=== PATIENT | female | born 1950 | race Caucasian/White ===

== ENCOUNTER 2017-12-02 11:09 | Emergency (ER) | payer OTHER, MEDICAID ==
[~2017-12-02] VITALS: Ht 160 cm; Wt 127.0 kg
[2017-12-02 11:21] VITALS: Ht 160 cm; Wt 127.0 kg
[2017-12-02 13:18] VITALS: BP 140/61
== END 2017-12-02 11:40 | disposition home or self-care (01) ==
LOC: ED 11:09
DX: S83.8X1A Sprain of other specified parts of right knee, initial encounter (principal); I10 Essential (primary) hypertension; E11.9 Type 2 diabetes mellitus without complications; W18.39XA Other fall on same level, initial encounter; Y93.89 Activity, other specified; Y92.090 Kitchen in other non-institutional residence as the place of occurrence of the external cause; Y99.8 Other external cause status
CPT/HCPCS: J1885

== ENCOUNTER 2018-01-15 08:12 | Emergency (ER) | payer OTHER, MEDICAID ==
[~2018-01-15] VITALS: Ht 160 cm; Wt 131.5 kg
[2018-01-15 09:53] VITALS: BP 151/78
== END 2018-01-15 09:53 | disposition home or self-care (01) ==
LOC: ED 08:12
DX: S80.12XA Contusion of left lower leg, initial encounter (principal); W01.0XXA Fall on same level from slipping, tripping and stumbling without subsequent striking against object, initial encounter; Y93.89 Activity, other specified; Y92.89 Other specified places as the place of occurrence of the external cause; Y99.8 Other external cause status; I10 Essential (primary) hypertension; E11.9 Type 2 diabetes mellitus without complications
CPT/HCPCS: Q0092

== ENCOUNTER 2018-11-11 06:32 | Emergency (ER) | payer OTHER, MEDICAID ==
[~2018-11-11] VITALS: Ht 160 cm; Wt 132.4 kg
[2018-11-11 06:37] VITALS: Ht 160 cm; Wt 132.4 kg
[2018-11-11 07:44] VITALS: BP 124/72
== END 2018-11-11 07:44 | disposition home or self-care (01) ==
LOC: ED 06:32
DX: S83.92XA Sprain of unspecified site of left knee, initial encounter (principal); M17.12 Unilateral primary osteoarthritis, left knee; I10 Essential (primary) hypertension; E11.9 Type 2 diabetes mellitus without complications; Z90.49 Acquired absence of other specified parts of digestive tract; X50.1XXA Overexertion from prolonged static or awkward postures, initial encounter; Y93.01 Activity, walking, marching and hiking; Y92.091 Bathroom in other non-institutional residence as the place of occurrence of the external cause; Y99.8 Other external cause status

== ENCOUNTER 2019-03-22 07:09 | Emergency (ER) | payer OTHER, MEDICAID ==
[~2019-03-22] VITALS: Ht 160 cm; Wt 132.6 kg
[2019-03-22 07:12] VITALS: Ht 160 cm; Wt 132.6 kg
[2019-03-22 08:28] VITALS: BP 149/56
== END 2019-03-22 08:28 | disposition home or self-care (01) ==
LOC: ED 07:09
DX: S63.502A Unspecified sprain of left wrist, initial encounter (principal); I10 Essential (primary) hypertension; E11.9 Type 2 diabetes mellitus without complications; X58.XXXA Exposure to other specified factors, initial encounter; Y93.89 Activity, other specified; Y92.89 Other specified places as the place of occurrence of the external cause; Y99.8 Other external cause status
CPT/HCPCS: J1885; J2270; Q0092; Q0162

== ENCOUNTER 2019-06-25 13:38 | Inpatient (IN) | payer OTHER, MEDICAID ==
[~2019-06-25] VITALS: Ht 160 cm; Wt 133.8 kg
[2019-06-25 13:59] VITALS: Ht 160 cm; Wt 133.8 kg
--- NOTE | 2019-06-25 14:01 | NUR ---
EKG IN PROGRESS
--- NOTE | 2019-06-25 16:45 | NUR ---
PATIENT AAOX4 PRESENTS TO THE ED WITH ONGOING PRODUCTIVE COUGH WITH WHITE PHELGM X 2 DAYS. PT STS SHE FEELS SOB. BREATHING EVEN WITH BILATERAL WHEEZES AND CONGESTION TO UPPER AND LOWER LOBES. ABD SOFT, NON DISTENDED, NON TENDER. SKIN WARM, DRY AND INTACT. NO OTHER SS OF DISTRESS NOTED. PT PLACED ON MONITORS FOR FURTHER OBSERVATION. WILL CONTINUE TO MONITOR.
--- NOTE | 2019-06-25 16:56 | NUR ---
MEDICATED PER MD ORDERS, SEE EMR
--- NOTE | 2019-06-25 16:57 | NUR ---
RESPIRATORY BEDSIDE PROVIDING BREATHING TX.
--- NOTE | 2019-06-25 17:49 | NUR ---
CALLED LAB RE: RESULTS FOR INFLUENZA SUBMITTED. LAB LOST SPECIMAN
--- NOTE | 2019-06-25 17:55 | NUR ---
RESENT NASAL SWAB FOR INFL A/B TEST. WILL CONTINUE TO F/U.
[2019-06-25] MEDS ORDERED: METFORMIN850 M1 PO (18:30)
[2019-06-25] MEDS ORDERED: GLIPIZIDE2.5 M1 PO (18:31)
[2019-06-25] MEDS ORDERED: ACT30 PO (18:31)
[2019-06-25] MEDS ORDERED: LISINOPRIL40 MG PO (18:32)
[2019-06-25 18:52] LABS: BASOPHIL % 0.7 % (0-2); PLATELET COUNT 179 x10^3mcL (130-400); RED CELL DISTRIBUTION WIDTH 13.9 % (11.5-14.5)
[2019-06-25 19:02] LABS: CALCIUM 8.9 mg/dL (8.5-10.1); CARBON DIOXIDE 24.2 mmol/L (21-32); CHLORIDE SERUM 102 mmol/L (98-107); CREATININE SERUM 1.2 mg/dL (0.6-1.0); GFR1 47 mL/min; GLUCOSE SERUM 96 mg/dL (74-106); POTASSIUM SERUM 3.9 mmol/L (3.5-5.1); SODIUM SERUM 136 mmol/L (136-145)
[2019-06-25 19:06] LABS: ALKALINE PHOSPHATASE 71 U/L (46-116); ALT/SGPT 29 U/L (14-59); AST/SGOT 24 U/L (15-37); BILIRUBIN TOTAL 0.3 mg/dL (0.20-1.00); TOTAL PROTEIN, SERUM 7.6 g/dL (6.4-8.2)
[2019-06-25 19:07] LABS: ALBUMIN 3.3 g/dL (3.4-5.0)
--- NOTE | 2019-06-25 19:21 | NUR ---
REPORT PROVIDED TO OLEKSANDR SANCHEZ FOR CONTINUED CARE OF YOUNG.
--- NOTE | 2019-06-25 19:34 | NUR ---
REPORT RECEIVED FROM HARRY LEGGETT
--- NOTE | 2019-06-25 19:59 | NUR ---
CALLED KAV[facility] MORALES PER PT REQUEST,
--- NOTE | 2019-06-25 20:25 | NUR ---
PT. AMBULATED TO THE RESTROOM WITH STEADY GAIT
--- NOTE | 2019-06-25 20:32 | NUR ---
PT. SITTING UP IN HIGH FOWLERS POSITION, AAOX4, NO ACUTE RESPIRATORY DISTRESS NOTED, ADMITTED, PENDING BED ASSIGNMENT, REPOSITIONED PT FOR COMFORT, CALL LIGHT WITHING REACH, WILL MONITOR.
--- NOTE | 2019-06-25 20:32 | NUR ---
DR. FARRAR AT BEDSIDE WITH UPDATED POC
--- NOTE | 2019-06-25 20:32 | NUR ---
SON AT BEDSIDE
[2019-06-25 20:49] LABS: CHOLESTEROL/HDL RATIO 3.8; MAGNESIUM 1.7 mg/dL (1.8-2.4); PHOSPHOROUS 1.8 mg/dL (2.5-4.9)
[2019-06-25 20:57] LABS: microscopic required? YES; urine erythrocyte NEGATIVE (NEGATIVE)
[2019-06-25 20:59] LABS: T3 TOTAL 0.89 ng/mL
[2019-06-25 21:09] LABS: FREE T4 1.45 ng/dL (0.76-1.46)
[2019-06-25 21:10] LABS: T4(THYROXINE) 15.3 ug/dL (4.7-13.3)
--- NOTE | 2019-06-25 21:57 | NUR ---
RT AT BEDSIDE WITH IS
--- NOTE | 2019-06-25 22:42 | NUR ---
CONTACTED PHARMACY FOR MUCINEX AND POTASSIUM PACKET PER ORDER, NONE IN [facility], PHARMACY WILL HAVE READY TO PERSONAL DEVELOPMENT MENTOR
[2019-06-25 23:20] VITALS: BP 148/55
--- NOTE | 2019-06-25 23:20 | NUR ---
MEDICATED PT PER MD ORDER, PT. TOLERATED WELL, SEE EAMR
--- NOTE | 2019-06-25 23:20 | NUR ---
PT. LAYING IN BED, AAOX4, NO ACUTE RESPIRATORY DISTRESS NOTED, REPOSITIONED PT FOR COMFORT, CALL LIGHT WITHIN REACH, VSS, WILL MONITOR, TELE HOLD.
--- NOTE | 2019-06-26 02:24 | NUR ---
PT. LAYING IN BED, SLEEPING, NO ACUTE RESPIRATORY DISTRESS NOTED, AROUSABLE TO TOUCH, DENIES PAIN, PROVIDED WARM BLANKETS, UPDATED PT WITH POC, PENDING BED ASSIGNMENT, ON MONITOR, WILL MONITOR.
--- NOTE | 2019-06-26 04:46 | NUR ---
PT. AMBULATED TO THE RESTROOM WITH STEADY GAIT
[2019-06-26 05:00] LABS: BASOPHIL % 0.4 % (0-2); PLATELET COUNT 179 x10^3mcL (130-400); RED CELL DISTRIBUTION WIDTH 14.5 % (11.5-14.5)
[2019-06-26 05:09] LABS: IRON 37 ug/dL (50-170); TOTAL IRON BINDING CAPACITY 342 ug/dL (250-450)
[2019-06-26 05:14] LABS: CALCIUM 8.7 mg/dL (8.5-10.1); CARBON DIOXIDE 24.1 mmol/L (21-32); CREATININE SERUM 1.3 mg/dL (0.6-1.0); MAGNESIUM 1.6 mg/dL (1.8-2.4); PHOSPHOROUS 3.5 mg/dL (2.5-4.9); POTASSIUM SERUM 4.7 mmol/L (3.5-5.1)
--- NOTE | 2019-06-26 06:30 | NUR ---
PT. LAYING IN BED, AAOX4, NO ACUTE RESPIRATORY DISTRESS NOTED, PROVIDED NEW GOWN FOR PT PER HER REQUESTD, REPOSITIONED PT FOR COMFORT, DENIES PAIN AT THIS TIME, CALL LIGHT WITHIN REACH, SAFETY PRECAUTIONS IN PLACE, IN VIEW OF STAFF, PENDING BED ASSIGNMENT.
--- NOTE | 2019-06-26 06:46 | NUR ---
MEDICATED PER MD ORDERS, PT.TOLERATED WELL, SEE EMAR
--- NOTE | 2019-06-26 07:27 | NUR ---
CALLED TO GIVEN REPORT STATED TO CALL BACK IN 5 MINS.
--- NOTE | 2019-06-26 07:33 | NUR ---
REPORT GIVEN TO JAVID LEGGETT
--- NOTE | 2019-06-26 07:40 | NUR ---
LINE CAMERA OPERATOROLEKSANDR HUA MADE AWARE, PT. C/O HEADACHE, 11/03, PT. REQUESTING TYLENOL.
[2019-06-26 08:30] VITALS: BP 187/64
--- NOTE | 2019-06-26 08:40 | NUR ---
PATIENT WAS C/O HEADACHE, TYLENOL WAS GIVEN BY OLEKSANDR MATT. WILL CONTINUE TO MONITOR FOR CHANGES.
[2019-06-26 09:04] VITALS: BP 159/77
--- NOTE | 2019-06-26 09:23 | NUR ---
RECEIVED PATIENT FROM ED. PATIENT ARRIVED VIA GUERNEY WITH NURSE. PATIENT OBSERVED AMBULATION TO BED. PATIENT SON LARA AT BEDSIDE. PATIENT STATES HAS MILD COMPLAINTS OF MCGEE BUT DENIES CHEST PAIN OR SOB. PRN TYLENOL PO ADMINISTERED. PATIENT HAS NONPRODUCTIVE COUGH WO SPUTUM, IS AT BEDSIDE AND PATIENT AWARE OF USAGE, EDUCATIONAL MATERIALS PROVIDED IN APPROPRIATE LANGUAGE. LUNG SOUNDS DIMINISHED TO BILATERAL BASES. PULSES PRESENT, TRACE EDEMA TO BLE. EXPLAINED TO PATIENT NEED FOR SPUTUM CULTURE, AND OB STOOL CULTURE, PATIENT AND SON VERBALIZE UNDERSTAND AND AGREE. DR MARTINEZ CONSULTED AND PATIENT MADE AWARE. INSTRUCTED PATIENT ON USE OF BED CONTROLS AND CALL LIGHT, AND TO CALL FOR ASSISTANCE IN AND OUT OF BED WELL TO USE BATHROOM.
--- NOTE | 2019-06-26 10:55 | NUR ---
MAG RIDER GIVEN AT THIS TIME. ALL NEEDS MET, WILL CONTINUE TO MONITOR.
--- NOTE | 2019-06-26 13:30 | NUR ---
PATIENT WAS RESTING IN BED COMFORTABLY, MEDICATIONS GIVEN AT THIS TIME. NO ACUTE DISTRESS NOTED, PATIENT DENIES PAIN. ALL NEEDS MET AT THIS TIME. CALL LIGHT WITHIN REACH, BED IN LOW POSITION. WILL CONTINUE TO MONITOR.
[2019-06-26 17:48] VITALS: BP 162/66
--- NOTE | 2019-06-26 18:00 | NUR ---
PATIENT RESTING IN BED, NO ACUTE DISTRES NOTED. PATIENT DENIES CHEST PAIN, DIZZINESS. PATIENT DENIES SOB, ON ROOM AIR. ALL NEEDS MET AT THIS TIME, WILL CONTINUE TO MONITOR FOR CHANGES. WILL ENDORSE REPORT TO OLEKSANDR BURGOS.
[2019-06-26 20:00] VITALS: BP 140/56
--- NOTE | 2019-06-26 20:11 | NUR ---
RECEIVED PT FROM AM, PT IS A/O X4, VERBAL RESPONSIVE. LUNG SOUND WHEEZING/CONGESTED, CONSTANTLY COUGH, COLLECT THE RESPIRATORY SPUTUM. PT IS ON TELE 12, NSR, DENY ANY CHEST PAIN OR DISCOMFORT, BOWEL SOUND PRESENT ALL 4 QUADRANTS, NO DISTENTION, NO TENDER. PEDAL PULSE PRESENT BOTH FEET, TRACE EDEMA, ALL ADLS ASSIST, ALL NEED MET, CALL LIGHT IN REACH, WILL CONTINUE TO MONITOR.
--- NOTE | 2019-06-27 01:17 | NUR ---
ENDROSE THE PT CARE TO LUNA LEGGETT. PT IS CURRENTLY SLEEPING, NO S/S OF RESPIRATORY DISTRESS, NO S/S OF PAIN OR DISCOMFORT, IV AT LEFT AC, NO LEAKING, NO INFILTRATION. ALL ADLS ASSIST, ALL NEED MET, CALL LIGHT IN REACH, WILL CONTINUE TO MONITOR.
--- NOTE | 2019-06-27 01:20 | NUR ---
REPORT RECEIVED FROM KELLEE(NT RN) AND I ASSUMED CARE. PT ON BED ASLEEP AND NOTED WITH NON LABORED BREATHING, NO RESP DISTRESS. IV SITE INTACT AND NO INFILTRATION NOTED TO SITE. WILL CONT TO MONITOR.
--- NOTE | 2019-06-27 03:14 | NUR ---
WENT AND CHECK PT, NOTED ASLEEP AND BREATHING UNLABORED AND NO APPARENT DISTRESS. NO CURRENT COMPLAIN AT THIS TIME. WILL CONT TO MONITOR.
--- NOTE | 2019-06-27 04:58 | NUR ---
PT AWAKE/ALERT/OX4. PT STATED FEELING A LOT BETTER AND DENIES SHORTNESS OF BREATH. DENIES CHETS PAIN. DENIES HEADACHE, DIZZINESS. IV SITE TO LFA INTACT AND FLUSHED WITH NS AND NO INFILTRATION NOTED TO SITE. KEPT COMFORTABLE ON BED. CALL LIGHT W/IN REACH. SAFETY MEASURES IN PLACE.
[2019-06-27 05:29] VITALS: BP 165/75
--- NOTE | 2019-06-27 06:05 | NUR ---
PT AWAKE/ALERT/OX4. DENIES RESP.DISRESS. NO SOB NOTED. DENIES CHEST PAIN. DENIES DIZZINESS, DENIES N/V. DENIES HEADACHE. PT STATES FEELING MUCH BETTER. IV SITE INTACT AND NO INFILTRATION NOTED TO SITE. KEPT COMFORTABLE ON BED. CALL LIGHT W/IN REACH. SAFETY MEASURES IN PLACED. WILL ENDORSE TO AM SHIFT.
[2019-06-27 06:51] LABS: CALCIUM 8.8 mg/dL (8.5-10.1); CARBON DIOXIDE 24.8 mmol/L (21-32); CREATININE SERUM 1.1 mg/dL (0.6-1.0); MAGNESIUM 2.2 mg/dL (1.8-2.4); PHOSPHOROUS 3.3 mg/dL (2.5-4.9)
--- NOTE | 2019-06-27 07:10 | NUR ---
RECEIVED PT FROM BOND WRITER RN. Mir/MOHIT. TELE#12. DENIES CHEST PAIN/PRESSURE. RESPIRATIONS EQUAL AND UNLABORED ON RA. DENIES SOB AT THIS TIME. PT STATES "I FEEL MUCH BETTER THAN WHEN I CAME IN." PT DENIES ANY PAIN AT THIS TIME TIME. FAMILY AT BEDSIDE. IV TO LAC SALINE LOCKED, FLUSHED WELL, NO REDNESS OR SWELLING NOTED. WILL CONTINUE TO MONITOR. CALL LIGHT IN REACH. BED IN LOWEST POSITION.
[2019-06-27 08:01] VITALS: BP 170/69
[2019-06-27 08:01] LABS: BASOPHIL % 0.2 % (0-2); PLATELET COUNT 186 x10^3mcL (130-400); RED CELL DISTRIBUTION WIDTH 14.2 % (11.5-14.5)
--- NOTE | 2019-06-27 08:53 | NUR ---
PT SITTING UP IN BED. NO ACUTE RESP DISTRESS NOTED ON RA. CUCA PRINTING PRESS OPERATOR AT BEDSIDE EXPLAINING TO PT PLAN FOR FOLLOW UP CXR AND WILL ADD MUCOMYST TO BREATHING TREATMENTS. ALL QUESTIONS AND CONCERNS ADDRESSED. GIVEN PO MEDS. TOLERATED WELL. FAMILY AT BEDSIDE. WILL CONTINUE TO MONITOR. CALL LIGHT IN REACH. BED IN LOWEST POSITION.
--- NOTE | 2019-06-27 12:00 | NUR ---
PT SITTING UP IN BED. NO ACUTE RESP DISTRESS NOTED ON RA. PT C/O MCGEE. MEDICATED PER EMAR. PT C/O FEELING CONSTIPATED. MEDICATED PER EMAR. PT MADE AWARE OF NEED TO OBTAIN STOOL OB, HAT PLACED IN BATHROOM. BLOOD SUGAR CHECKED WAS 189. GIVEN 3 UNITS OF REGULAR INSULIN PER SLIDING SCALE. WILL CONTINUE TO MONITOR. CALL LIGHT IN REACH. BED IN LOWEST POSITION.
[2019-06-27 12:27] VITALS: BP 156/64
--- NOTE | 2019-06-27 12:37 | NUR ---
RECEIVED [facility] OF PTT 51.9. PER HEPARIN DRIP PROTOCOL NO CHANGE NEEDED. HEPARIN INFUSING AT 700 UNITS/HR. ORDERED STAT PTT AT 1630. WILL CONTINUE TO MONITOR.
[2019-06-27 16:09] VITALS: BP 141/53
--- NOTE | 2019-06-27 17:08 | NUR ---
PT IN BED RESTING. NO ACUTE RESP DISTRESS NOTED ON RA. PT DENIES ANY PAIN AT THIS TIME. GIVEN PO MEDS. TOLERATED WELL. BLOOD SUGAR CHECKED WAS 228. GIVEN 6 UNITS OF REGULAR INSULIN PER SLIDING SCALE. PT STATES STILL UNABLE TO HAVE BM. WILL CONTINUE TO MONITOR. CALL LIGHT IN REACH. BED IN LOWEST POSITION.
--- NOTE | 2019-06-27 17:56 | NUR ---
RECEIVED CALL FROM MICRO NEED NEW SPECIMEN FOR SPUTUM CULTURE. PT STATES UNABLE TO COUGH ANY SPUTUM UP. PT STATES "I HAVE A COUGH ITS DRY. NOTHING COMES UP." CUCA DEAN OF INSTRUCTION MADE AWARE, PER CUCA DEAN OF INSTRUCTION NO NEED TO COLLECT SPUTUM CULTURE.
--- NOTE | 2019-06-27 18:43 | NUR ---
PT SITTING UP IN BED. NO ACUTE RESP DISTRESS NOTED ON RA. PT DENIES ANY SOB AT THIS TIME. PT DENIES ANY PAIN AT THIS TIME. JIMENEZ CARE PROVIDED. EMPTIED 100 ML OF CLOUDY YELLOW URINE FROM JIMENEZ. PT DENIES ANY N/V. IV TO LFA INFUSING HEPARIN AT 700 UNITS/HR PER PROTOCOL. NO REDNESS OR SWELLING NOTED. WILL ENDORSE CARE TO CARGO CHECKER RN. CALL LIGHT IN REACH. BED IN LOWEST POSITION.
--- NOTE | 2019-06-27 18:47 | NUR ---
PT IN BED RESTING. NO ACUTE RESP DISTRESS NOTED ON RA. PT DENIES ANY SOB AT THIS TIME. PT STATES BREATHING HAS IMPROVED SINCE YESTERDAY. PT DENIES ANY PAIN AT THIS TIME. IV TO LFA SALINE LOCKED. NO REDNESS OR SWELLING NOTED. WILL ENDORSE CARE TO ENGINEERING TEST SPECIALIST RN. CALL LIGHT IN REACH. BED IN LOWEST POSITION.
--- NOTE | 2019-06-27 19:32 | NUR ---
RECEIVED PT FROM DAY SHIFT RN. PT AAOX4 DENIES MCGEE/DIZZINESS. BREATHING EVEN AND UNLABORED ON RA WITH NO SOB NOTED. REPORTS CONT HAVING A COUGH. MED SURG PT DENIES CHEST PAIN/PRESSURE. IV RFA PATENT. BLE EDEMA, PALPABLE PULSES. ABD SOFT/DIST ACTIVE BOWEL SOUNDS. DENIES ABD PAIN/N/V. NO ACUTE DISTRESS NOTED.CALL BUTTON WITHIN REACH. SAFETY PRECAUTIONS IN PLACE. WILL CONTINUE TO MONITOR.
[2019-06-27 19:53] VITALS: BP 153/65
--- NOTE | 2019-06-28 01:44 | NUR ---
PT RESTING. BREATHING EVEN AND UNLABORED ON RA WITH NO SOB NOTED. NO ACUTE DISTRESS NOTED. CALL BUTTON WITHIN REACH. SAFETY PRECAUTIONS IN PLACE. WILL CONTINUE TO MONITOR.
[2019-06-28 04:41] VITALS: BP 151/64
--- NOTE | 2019-06-28 05:55 | NUR ---
PT SLEPT MOST OF THE NIGHT WITH NO SIGNS OF ACUTE DISTRESS. BREATHING EVEN AND UNLABORED ON RA WITH NO SOB NOTED. IV PATENT, SL. MEDICATED PER EMAR. CALL BUTTON WITHIN REACH. SAFETY PRECAUTIONS IN PLACE. WILL CONTINUE TO MONITOR AND ENDORSE CARE TO DAY SHIFT RN.
[2019-06-28 06:32] LABS: PLATELET COUNT 183 x10^3mcL (130-400); RED CELL DISTRIBUTION WIDTH 14.4 % (11.5-14.5)
[2019-06-28 06:34] LABS: CALCIUM 9.1 mg/dL (8.5-10.1); CARBON DIOXIDE 24.2 mmol/L (21-32); CREATININE SERUM 1.2 mg/dL (0.6-1.0); POTASSIUM SERUM 4.6 mmol/L (3.5-5.1)
[2019-06-28 06:52] LABS: BASOPHIL % 0 % (0-2)
--- NOTE | 2019-06-28 07:00 | NUR ---
RECEIVED PATIENT AWAKE/ALERT SAT UP AT SIDE OF BED, DENIES SOB, NO PAIN REPORTED. POC DISCUSS. IV TO RFA INTACT AND SL, NO ERYTHEMA NOTED. CALL LIGHT WITHIN REACH
--- NOTE | 2019-06-28 07:37 | NUR ---
PT AWAKE, NO SIGNS OF ACUTE DISTRESS. ENDORSED CARE TO DAY SHIFT RN, ALL QUESTIONS ADDRESSED.
[2019-06-28 08:25] VITALS: BP 169/69
--- NOTE | 2019-06-28 09:17 | NUR ---
PATIENT UP WALKING IN HALLWAY W/ VISITOR, SOB/MILD DISTRESS NOTED DURING WALKING. BACK TO ROOM AND SAT UP IN CHAIR. ALL PO MEDS ADMINISTERED AND TOLERATED WELL. NEEDS MET. CONT TO MONITOR.
--- NOTE | 2019-06-28 11:26 | NUR ---
PATIENT RESTING IN BED, VISITOR AT BEDSIDE. NO COMPLAIN. BS 207 GAVE 6 UNITS REGULAR INSULIN SQ. NEEDS MET. QUESTIONS ADDRESSED. CALL LIGHT WITHIN REACH.
[2019-06-28 12:42] VITALS: BP 146/61
--- NOTE | 2019-06-28 13:16 | NUR ---
PATIENT WALKING IN HALLWAY AND TOLERATED WELL, WITH MILD SOB NOTED.
--- NOTE | 2019-06-28 13:58 | NUR ---
PATIENT SAT UP IN CHAIR, ON BREATHING TREATMENT, NO ACUTE DISTRESS NOTED, SOLMEDROL 40MG IVP ADMINISTERED TO RFA IV PATENT. NO SWELLING NOTED. NEEDS MET.
--- NOTE | 2019-06-28 15:37 | NUR ---
PATIENT RESTING IN BED NO COMPLAIN, FAMILY MEMBER REMAIN AT BEDSIDE. NEEDS MET.
[2019-06-28 16:29] VITALS: BP 143/61
--- NOTE | 2019-06-28 16:48 | NUR ---
PATIENT UP IN CHAIR NO COMPLAIN, BS 169 GAVE 3 UNITS REGULAR SQ AND PATIENT TOLERATED WELL. NO NEEDS ATTENDED.
--- NOTE | 2019-06-28 17:45 | NUR ---
PATIENT REMAIN UP IN CHAIR, FERROUS SULFATE PO ADMINISTERED, DINNER TRAY GIVEN BY DIETARY SERVICES. NEEDS MET. CONT TO MONITOR.
[2019-06-28 19:28] VITALS: BP 154/65
--- NOTE | 2019-06-28 19:30 | NUR ---
RECEIVED PT SITTING UP IN BEDSIDE CHAIR, ACTIVELY USING I.S. ENCOURAGED PT TO CONTINUE USING 10X PER HOUR WHILE AWAKE. BREATHING ON RA, EVEN AND UNLABORED, DENIES SOB OR DYSPNEA, LUNGS DIM MARIELA, O2 SAT 94% AA/OX4, ABLE TO MAKE NEEDS KNOWN. MED-SURG, NO TELE, NO CP. PULSES EQUAL, TRACE EDEME TO BLE. DENIES N/V/D. VOIDS URINE FREELY. GENERALIZED WEAKNESS, AMBULATORY AND ABLE TO REPOSITION SELF IN BED. IV TO RFA IN PLACE, DRY, PATENT, INTACT, S/L, NO S&S PHLEBITIS OR INFILTRATION NOTED. COMFORT AND SAFETY MEASURES IN PLACE. ALL NEEDS ASSESSED AND ATTENDED TO. CALL LIGHT WITHIN REACH. WILL CONTINUE TO MONITOR
[2019-06-29 04:57] VITALS: BP 153/69
--- NOTE | 2019-06-29 05:58 | NUR ---
NO SIGNIFICANT CHANGES TO REPORT, PT COMPLIED WITH NURSING CARE THROUGHOUT THE SHIFT WITH NO ACUTE EVENTS OVERNIGHT. NO ACUTE DISTRESS OBSERVED AT THIS TIME, PT LAYING IN BED, BREATHING EVEN AND UNLABORED. COMFORT AND SAFETY MEASURES MAINTAINED. ALL NEEDS ASSESSED AND ATTENED TO. CALL LIGHT WITHIN REACH. WILL CONTINUE TO MONITOR AND ENDORSE CARE TO DAY SHIFT NURSE
--- NOTE | 2019-06-29 07:00 | NUR ---
RECEIVED REPORT FROM ANGIE RN AT BEDSIDE, PT AMBULATORY ALONG THE HALLWAY IN NO ACUTE DISTRESS
--- NOTE | 2019-06-29 07:30 | NUR ---
PT RESTING IN CHAIR, IN NO ACUTE DISTRESS, VERBAL, ABLE TO MAKE NEEDS KNOWN, NO FACIAL DROOP/SLURRED SPEECH, PERRLA, RESP E/U, RA, NO SOB/COUGH, I.S., RT PROTOCOL, MEDSURG, DENIED CP/PALPITATION, DENIED PAIN/DISCOMFORT, DENEID DIZZINESS/N/V, ABD ROUND AND NON-TENDER TO TOUCH, BS ACTIVE X 4, AMBULATORY, CONTINENT, SKIN C/D/W, SEE SKIN ASSESSMENT, IV PATENT AND FLUSHING WELL, DRESSING CDI, PALP PULSES, CAP REFILL < 3S, EQUAL PERNELL TECH ED/WOODSHOP TEACHER, TRACE EDEMA BLE, ALL NEEDS ADDRESSED, SAFETY PROTOCOL MAINTAINED, CONTINUE TO MONITOR
[2019-06-29 08:33] VITALS: BP 189/78
--- NOTE | 2019-06-29 09:03 | NUR ---
AM MED GIVEN PER MD ORDER PER EMAR, TOLERATED WELL, NO ASE NOTED AT THIS TIME, EDUCATED PT R/T MED, ASE AND MONITOR, VERBALLY UNDERSTANDING, SAFETY PRECAUTION MAINTAINED, CONTINUE TO MONITOR
[2019-06-29 12:45] VITALS: BP 163/71
--- NOTE | 2019-06-29 14:24 | NUR ---
VOID X 1, PT AMBULAOTRY ALONG HALLWAY. PER PT, HER SISTER IN HOSPITAL ON [facility] AND PT IS ALLOWED TO VISIT PER SISTER AUTHORIZATION, ALL NEEDS ADDRESSED, CONTINUE TO MONITOR
--- NOTE | 2019-06-29 17:09 | NUR ---
PT RESTING IN BED, IN NO ACUTE DISTRESS, DENIED PAIN/DISCOMFORT/MCGEE, DENIED N/V/D, RESP EVEN, RA, NO SOB/COUGH, MEDSURG, SKIN C/D/W, IV PATENT AND FLUSHING WELL, DRESSING CDI, ALL NEEDS ADDRESSED AT THIS TIME, SAFETY PROTOCOL MAINTAINED, COMFORT MEASURE PROVIDED, REY ENDORSE TO ONCOMING RN
[2019-06-29 17:18] VITALS: BP 168/69
--- NOTE | 2019-06-29 20:08 | NUR ---
Awake and verbally responsive. No respiratory distress noted on room air. Denies pain. Denies n/v. Ambulating in the hallway. No congestion noted. Occasional coughing. Will cont.to monitor.
[2019-06-29 20:10] VITALS: BP 157/73
--- NOTE | 2019-06-30 04:06 | NUR ---
Afebrile. No significant change in condition noted. Tylenol given as ordered for c/o headache with relief. Cont.on IV rocephin, zithromax, solumedrol. Ambulated.
[2019-06-30 05:07] VITALS: BP 158/77
--- NOTE | 2019-06-30 07:25 | NUR ---
RECEIVED PT. IN BED A/A/O X3. NO SOB, NO N/V NOTED. PT. DENIES ANY PAIN AT THIS TIME. IV SITE NOTED TO R FA. BED IN LOW POS., CALL LIGHT WITHIN REACH. SIDE RAILS UP X3.
[2019-06-30 09:00] VITALS: BP 117/72
[2019-06-30] MEDS ORDERED: PREDNISONE20 MG PO (09:17)
[2019-06-30] MEDS ORDERED: BREO ELLIPTA1 POW IH (09:18)
[2019-06-30] MEDS ORDERED: LEVOFLOXACIN500 M1 PO (09:18)
[2019-06-30] MEDS ORDERED: MONTELUKAST SOD10 M1 PO (09:22)
--- NOTE | 2019-06-30 11:00 | NUR ---
PT. STATED FAMILY WILL COME AROUND 4:30 PM TO PICK HER UP.
[2019-06-30 14:57] VITALS: BP 117/72
--- NOTE | 2019-06-30 16:00 | NUR ---
D/C HOME INSTRUCTIONS GIVEN TO PT. WHO VERBALIZED UNDERSTANDING OF INSTRUCTIONS. IV H/L TO R FA REMOVED. PRESCRIPTIONS GIVEN.
--- NOTE | 2019-06-30 16:16 | NUR ---
FAMILY ARRIVED. PT. IS BEING DISCHARGED IN STABLE CONDITION VIA WHEELCHAIR. ALL BELONGINGS SENT HOME WITH PT. UPON DISCHARGE.
== END 2019-06-30 16:17 | disposition home or self-care (01) | DRG 193 ==
LOC: ED 13:38 → DU 20:28 → MU 06-27 10:15
PROVIDERS: Emergency Medicine; Internal Medicine; ADMIT General Practice
DX: J18.9 Pneumonia, unspecified organism (principal); N17.0 Acute kidney failure with tubular necrosis; Z68.42 Body mass index [BMI] 45.0-49.9, adult; E44.1 Mild protein-calorie malnutrition; E11.9 Type 2 diabetes mellitus without complications; E86.0 Dehydration; D64.9 Anemia, unspecified; I10 Essential (primary) hypertension; E83.42 Hypomagnesemia; E83.39 Other disorders of phosphorus metabolism; Z79.84 Long term (current) use of oral hypoglycemic drugs
CPT/HCPCS: 82962; 83880; 84439; 87804; 90658; 90732; 94150; G0378; J0132; J0456; J0696; J1815; J2920; J3475; J7030; J7050; J7060; J7512; J7613; J7644; Q0092